=== PATIENT | male | born 1965 | race Caucasian/White ===

== ENCOUNTER 2017-03-12 14:23 | Emergency (ER) | payer OTHER, BC ==
--- NOTE | 2017-03-12 14:55 | RAD ---
RIGHT SMALL DIGIT RADIOGRAPHS 3 VIEWS: Date: 03/12/17 PROVIDED CLINICAL HISTORY: Right small digit pain status post injury. FINDINGS: There is a markedly comminuted, displaced fracture of the small digit terminal tuft. Associated soft tissue irregularity suggests laceration. Tiny punctate focus of increased density is present in the s oft tissues of the ulnar aspect of the distal small digit which may reflect a tiny foreign body. No a dditional fracture is evident. Alignment appears otherwise anatomic. Joint spaces appear preserved. IMPRESSION: Markedly comminuted terminal tuft fracture involving the small digit with findings suggesting associa paul laceration and possible tiny foreign body. POS: [place]
[2017-03-12] MEDS ORDERED: Bupivacaine 0.5% 10 ML VIAL ONE (16:22)
[2017-03-12] MEDS ORDERED: Lidocaine 1% PF 5 ML VIAL ONE (16:22)
[2017-03-12] MEDS ORDERED: Bacitracin Zinc 1 Packet ONE (17:33)
== END 2017-03-12 17:36 | disposition home or self-care (01) ==
LOC: ERS 14:23
DX: S67.196A Crushing injury of right little finger, initial encounter (principal); S62.636A Displaced fracture of distal phalanx of right little finger, initial encounter for closed fracture; F17.210 Nicotine dependence, cigarettes, uncomplicated; W31.89XA Contact with other specified machinery, initial encounter; Y99.0 Civilian activity done for income or pay
CPT/HCPCS: 11760; J2001; J3490

== ENCOUNTER 2017-03-26 15:57 | Outpatient (CLI) | payer OTHER ==
[2017-03-26 16:22] LABS: #Basophils 0.1 thou/uL (0.0-0.2); #Eosinphils 0.3 thou/uL (0.0-0.7); #Lymphocytes 2.5 thou/uL (1.20-3.40); #Monocytes 0.6 thou/uL (0.11-0.59); #Neutrophils 3.1 thou/uL (1.40-6.50); %Basophils 1.6 % (0.0-1.0); %Eosinophils 4.8 % (0.0-10.0); %Lymphocytes 38.2 % (21.0-51.0); %Monocytes 8.5 % (0.0-10.0); Hemoglobin 14.2 g/dL (14.0-18.0); Mean Corpuscular HGB CONC 33.9 g/dL (32.0-36.0); Mean Corpuscular Hemoglobin 32.4 pg (27.0-31.0); Mean Corpuscular Volume 95.5 fl (80.0-94.0); Mean Platelet Volume 9.6 fL (7.4-10.4); Platelet Count 171 thou/uL (130-400); RBC Distribution Width 12.5 % (11.5-14.5); Red Blood Cell (RBC) Count 4.38 mill/uL (4.70-6.10); White Blood Cell (WBC) Count 6.6 thou/uL (4.8-10.8)
[2017-03-26 16:36] LABS: Anion Gap 10 mmol/L (10-20); BUN (Urea Nitrogen) 18 mg/dL (8.4-25.7); Calc. Creatinine Clearance 0 mL/min (70-130); Calcium 9.5 mg/dL (7.8-10.44); Carbon Dioxide 28 mmol/L (22-29); Chloride 107 mmol/L (98-107); Estimated GFR-MDRD 82; Glucose 94 mg/dL (70-105); Potassium 4.3 mmol/L (3.5-5.1); Sodium 141 mmol/L (136-145)
--- NOTE | 2017-05-30 13:59 | EKG ---
Test Reason : Blood Pressure : / mmHG Vent. Rate : 081 BPM Atrial Rate : 081 BPM P-R Int : 164 ms QRS Dur : 086 ms QT Int : 362 ms P-R-T Axes : 080 073 059 degrees QTc Int : 420 ms Normal sinus rhythm Normal ECG No previous ECGs available Confirmed by MEENU BAUTISTA MD ([id number]) on 05/30/2017 1:59:31 PM Referred By: LINDA Confirmed By:MEENU BAUTISTA MD
== END 2017-03-26 15:58 | disposition home or self-care (01) ==
LOC: LABBT 15:57
PROVIDERS: ATTEND Orthopaedic Surgery Hand Surgery
DX: Z01.818 Encounter for other preprocedural examination (principal); S62.636A Displaced fracture of distal phalanx of right little finger, initial encounter for closed fracture
CPT/HCPCS: 80048; 85025; 85730; 93005; 93010

== ENCOUNTER 2017-03-27 08:22 | Day surgery (SDC) | payer OTHER ==
[2017-03-26 16:10] VITALS: BMI 29.5
[2017-03-27] MEDS ORDERED: Clindamycin/D5W 600 mg/50 ml Premix Bag ONE (09:17)
[2017-03-27] MEDS ORDERED: Sodium Chloride 0.9% 10 ML ONE (10:04)
[2017-03-27] MEDS ORDERED: Bacitracin Zinc Ointment 30 gm TUBE ONE (10:04)
[2017-03-27] MEDS ORDERED: Bupivacaine 0.5% 10 ML VIAL ONE (10:04)
[2017-03-27] MEDS ORDERED: Fentanyl 100 MCG/2 ML VIAL ONE (10:05)
[2017-03-27] MEDS ORDERED: Midazolam HCl 2 mg/2 ml Vial ONE ×2 (10:05→10:07)
[2017-03-27] MEDS ORDERED: Ketorolac Tromethamine 30 MG/ML VIAL ONE (11:36)
--- NOTE | 2017-03-27 14:36 | RAD ---
LATERAL INTRAOPERATIVE FLUOROSCOPIC IMAGE OF THE RIGHT SMALL FINGER: Date: 03/17/17 HISTORY: Right fifth digit debridement. FINDINGS/IMPRESSION: There is subcutaneous soft tissue swelling involving the distal aspect of the right small finger. The comminuted fracture involving the distal portion and tuft of the distal phalanx right small finger i s present. There is soft tissue irregularity related to laceration. Correlation with intraoperative f indings is recommended. POS: BUFFY
[2017-03-27] MEDS ORDERED: Lidocaine 1% PF 5 ML VIAL ONE (16:43)
[2017-03-27] MEDS ORDERED: Propofol 200 MG/20 ML VIAL ONE (16:43)
--- NOTE | 2017-03-27 17:49 | OP ---
DATE OF PROCEDURE: 03/27/2017 PREOPERATIVE DIAGNOSIS: Right small finger necrotic wound with previous open fracture and nail bed i njury. POSTOPERATIVE DIAGNOSES: 1. Necrosis, but not purulent or infected distal finger, 3 mm length, 5 mm wide area. 2. Nail bed laceration with some exposed bone. PROCEDURES PERFORMED: 1. Debridement of bone. 2. Treatment of open fracture with open treatment, distal phalanx open fracture. 3. Nail bed repair. 4. A 3.0 cm wound closure after debridement. SPECIMEN REMOVED: The necrotic piece was sent to lab, which was 3 mm long and 5 mm wide. INDICATION: The patient with the injury listed above, now almost 10 days old, had necrotic area, whi ch would not go to heal by itself, so felt operative intervention or treatment to include bone shorte emily and treatment of the open fracture was indicated. DESCRIPTION OF PROCEDURE: After successful anesthesia as listed above, the limb was prepped and drap ed. The patient had 2 mL augmentation of his anesthesia with Marcaine at the metacarpophalangeal cruzito nt block. Blunt no epinephrine. Then, we removed all the sutures under anesthesia and at that point , resected the necrotic areas leaving a 2 mm rim of bleeding tissue that was healthy and pink. Witho ut tourniquet, we could evaluate to bleed and it was healthy pink and bleeding. We then noticed that he had a small amount of bone protruding in the wound, so we removed, in order to treat his open fra cture, the fragments to make it as curvilinear as possible in line with the sagittal plane and this w as an open treatment of this open fracture. We then irrigated the fracture, the wound and the nail b ed laceration with a total of 2 liters normal saline with antibiotics inside using bulb syringe press ure. We now saw there were 2 longitudinal lacerations in the nail bed, which we debrided and closed with 5 -0 interrupted simple chromic. We then used 4-0 nylon and 5-0 nylon alternated to repair the wedge s haped laceration area, now remained with excellent bleeding. There was actually coaptation, and we d id not need a skin graft. The patient then had a bulky dressing applied with Kerlix on top of 4x4s on top of bacitracin and Ada ptic. Bulky dressing left with the patient and the patient had no evidence of anesthetic or operativ e complications.
== END 2017-03-27 12:39 | disposition home or self-care (01) ==
LOC: SDC 08:22
PROVIDERS: ATTEND Orthopaedic Surgery Hand Surgery
PROC: 0PBT0ZZ Excision of Right Finger Phalanx, Open Approach (ICD-10-PCS; principal; 2017-03-27)
PROC: 0HQQXZZ Repair Finger Nail, External Approach (ICD-10-PCS; principal; 2017-03-27)
DX: S62.636B Displaced fracture of distal phalanx of right little finger, initial encounter for open fracture (principal); I96 Gangrene, not elsewhere classified; F17.210 Nicotine dependence, cigarettes, uncomplicated; Z83.3 Family history of diabetes mellitus; Z98.890 Other specified postprocedural states
CPT/HCPCS: 76001; 96374; A4216; J1885; J2001; J2250; J2704; J3010; J3490

== ENCOUNTER 2019-07-26 06:44 | Outpatient (CLI) | payer BC, OTHER ==
[2019-07-26 11:27] LABS: INR-International Normal Ratio 0.9; PTT 35.8 sec (22.9-36.1); Prothrombin Time 12.6 sec (12.0-14.7)
[2019-07-26 11:28] LABS: Hemoglobin 15.4 g/dL (14.0-18.0); Mean Corpuscular HGB CONC 32.1 g/dL (32.0-36.0); Mean Corpuscular Hemoglobin 31.1 pg (27.0-31.0); Mean Corpuscular Volume 96.7 fL (78.0-98.0); Mean Platelet Volume 10.6 fL (7.4-10.4); Platelet Count 167 thou/uL (130-400); RBC Distribution Width 12.2 % (11.5-14.5); Red Blood Cell (RBC) Count 4.95 mill/uL (4.70-6.10); White Blood Cell (WBC) Count 5.8 thou/uL (4.8-10.8)
[2019-07-26 12:05] LABS: Bacteria/HPF None Seen HPF (None Seen); Bilirubin Negative (Negative); Blood, Urine 2+ (Negative); Clarity Clear (Clear); Glucose, Urine (Dipstick) Normal (Negative); Leukocyte Negative Leu/uL (Negative); Nitrite Negative (Negative); Protein, Urine (Dipstick) 10 mg/dL (Neg-Trace); RBC/HPF 0-3 HPF (0-3); Squamous Epithelial None Seen HPF (0-3); Urobilinogen Normal mg/dL (Less than 2); WBC/HPF 0-3 HPF (0-3)
[2019-07-26 13:18] LABS: Anion Gap 15 mmol/L (10-20); BUN (Urea Nitrogen) 13 mg/dL (8.4-25.7); Calc. Creatinine Clearance 0 mL/min (70-130); Calcium 9.3 mg/dL (7.8-10.44); Carbon Dioxide 25 mmol/L (22-29); Chloride 104 mmol/L (98-107); Estimated GFR-MDRD 85; Glucose 97 mg/dL (70-105); Potassium 4.5 mmol/L (3.5-5.1); Sodium 139 mmol/L (136-145)
[2019-07-27 12:45] LABS: SARS-CoV-2 MS2 Positive; SARS-CoV-2 N Gene Negative; SARS-CoV-2 S Gene Negative; SARS-CoV-2 orf1ab Negative
== END 2019-07-26 06:45 | disposition home or self-care (01) ==
LOC: LABBT 06:44
PROVIDERS: ATTEND Urology
DX: Z01.818 Encounter for other preprocedural examination (principal); Z11.59 Encounter for screening for other viral diseases; C67.2 Malignant neoplasm of lateral wall of bladder; J44.9 Chronic obstructive pulmonary disease, unspecified; Z72.0 Tobacco use
CPT/HCPCS: 80048; 81001; 85027; 85610; 85730; 87086; 87635; 93005; 93010; U0003

== ENCOUNTER 2019-07-28 07:44 | Day surgery (SDC) | payer BC ==
[2019-07-25 10:49] VITALS: BMI 28.2
[2019-07-28] MEDS ORDERED: Levofloxacin 500 mg/D5W 100 ml Premix Bag ONE (08:30)
[2019-07-28] MEDS ORDERED: Fentanyl 100 MCG/2 ML VIAL ONE (10:42)
[2019-07-28] MEDS ORDERED: MITOMYCIN I-VESIC SCH (10:45)
[2019-07-28] MEDS ORDERED: Midazolam HCl 2 mg/2 ml Vial ONE (10:45)
[2019-07-28] MEDS ORDERED: STERILE WATER I-VESIC SCH (10:45)
[2019-07-28] MEDS ORDERED: Rocuronium Bromide 50 MG/5 ML VIAL ONE (11:18)
[2019-07-28] MEDS ORDERED: B & O ONE (11:48)
[2019-07-28] MEDS ORDERED: SUGAMMADEX SODIUM 200 MG/2 ML VIAL ONE (11:55)
[2019-07-28] MEDS ORDERED: Oxybutynin 5 MG TAB ONE (13:05)
[2019-07-28] MEDS ORDERED: Phenazopyridine HCl 97.5 MG TABLET ONE (13:05)
--- NOTE | 2019-07-28 13:14 | RAD ---
RETROGRADE PYELOGRAM: Date; 07/28/2019 HISTORY: Bladder tumor. FINDINGS: Two spot films are presented for interpretation. These demonstrate a partially filled bladder. There is no evidence for reflux into the right or left ureter. No contrast media in the right or left urete r from injection. IMPRESSION: Two AP views of the lower abdomen and pelvis demonstrate contrast media within the bladder without ev idence for reflux, ureteral injection, or overt bladder mass from this study. POS: JOAQUÍN
[2019-07-28] MEDS ORDERED: hydrALAZINE 20 MG/ML VIAL ONE (14:44)
[2019-07-28] MEDS ORDERED: Lidocaine 1% PF 5 ML VIAL ONE (15:47)
[2019-07-28] MEDS ORDERED: Glycopyrrolate 0.2 MG/ML 5 ML SYRINGE ONE (15:47)
[2019-07-28] MEDS ORDERED: Ondansetron PF 4 MG/2 ML Vial ONE (15:47)
[2019-07-28] MEDS ORDERED: Rocuronium Bromide 10 MG/ML (10ML VIAL) ONE (15:47)
[2019-07-28] MEDS ORDERED: Dexamethasone 20 MG/5 ML VIAL ONE (15:47)
[2019-07-28] MEDS ORDERED: EPHEDRINE 25 MG/5 ML SYRINGE ONE (15:47)
[2019-07-28] MEDS ORDERED: PROPOFOL 200 MG/20 ML VIAL ONE (15:47)
--- NOTE | 2019-07-28 16:56 | OP ---
DATE OF PROCEDURE: 07/28/2019 SERVICE: Urology. PREOPERATIVE DIAGNOSIS: Bladder cancer. POSTOPERATIVE DIAGNOSIS: Bladder cancer. PROCEDURE PERFORMED: Transurethral resection of bladder tumor of approximately 2 to 5 cm with postoperative instillation of mitomycin-C and intraoperative cystogram. INDICATIONS FOR PROCEDURE: Mr. Westbrook is a 53-year-old white male, who presented to de with gross hematuria. Cystoscopy demonstrated a large bladder tumor on the patient's right lateral bladder wall somewhat posteriorly. We discussed TURBT with mitomycin-C instillation with risks and benefits, and he has agreed to proceed forward. DESCRIPTION OF PROCEDURE: After identification of armband and verification of consent, the patient was brought back to the operating room, where he underwent general anesthesia with endotracheal intubation and full paralysis. He was then placed in dorsal lithotomy position and prepped and draped in usual sterile fashion. After appropriate time-out, a lubricated 26-[place] resectoscope sheath with continuous-flow was introduced per urethra into the bladder. The visual obturator was switched out for the bipolar bladder resectoscope loop. Full cystoscopy was performed, which did not demonstrate any tumors except the previously described tumor, which was approximately 4 cm in size. Using the resectoscope loop, the stone was dislodged off the surface of the tumor and then resection carried down to the base of the tumor. The base was resected into the detrusor muscle. In one area, it did look a little deep, but did not look like it was perforated all the way through. The remainder was resected into the muscle, but not through it. Upon completion, there was no visible tumor left. All areas were meticulously cauterized for hemostasis. There was no active bleeding toward the end of the case. All the tumor was evacuated through the cystoscope loop. The stone was crushed using the resectoscope loop and then evacuated. There was no identifiable tumor at the end of the case within the bladder. Before instilling mitomycin-C, I did decide to do a cystogram to ensure that there was no bladder extravasation as this would be a contraindication proceeding with mitomycin-C. Therefore, an 18-[place] Jonas catheter was then placed into the bladder after this resectoscope was removed and 10 mL of sterile water placed into the balloon. Approximately 240 mL of sterile water mixed with contrast was instilled into the bladder. Plain stuffer film was performed using the fluoroscopy, which demonstrated cellules and an irregular bladder wall, but no evidence of extravasation. The resection bed could be visualized and again no leak was identified. Satisfied that there was no leak and it is extremely unlikely the patient will carry more than 250 mL in his bladder during his mitomycin-C instillation. I did feel it was safe to proceed with mitomycin-C instillation. The contrast and water were drained out completely out of the bladder until everything was evacuated. At which point, 40 mg of mitomycin-C in 20 mL of water was instilled into the patient's bladder. The catheter was plugged. B and O suppositories placed into his rectum. All the specimen was sent off for routine pathologic evaluation. The patient was then taken out of positioning, awakened, and taken to PACU for recovery in stable condition. COMPLICATIONS: None. ESTIMATED BLOOD LOSS: Minimal. RETAINED TUBES AND DRAINS: 18-[place] Jonas. SPECIMENS: Bladder tumor. DISPOSITION: The patient will stay in recovery for 1 hour for mitomycin-C instillation. After that, he can undergo a void trial and be discharged home, and his postop care will be handled on an outpatient basis thereafter. Job ID: [id number]
== END 2019-07-28 16:27 | disposition home or self-care (01) ==
LOC: SDC 07:44
PROVIDERS: ATTEND Urology
PROC: 0TBB8ZZ Excision of Bladder, Via Natural or Artificial Opening Endoscopic (ICD-10-PCS; principal; 2019-07-28)
DX: C67.2 Malignant neoplasm of lateral wall of bladder (principal); F17.210 Nicotine dependence, cigarettes, uncomplicated; J44.9 Chronic obstructive pulmonary disease, unspecified; Z79.899 Other long term (current) drug therapy
CPT/HCPCS: 74420; 88307; J0360; J1100; J1956; J2001; J2250; J2405; J2704; J3010; J9280

== ENCOUNTER 2019-08-09 08:42 | Day surgery (SDC) | payer BC ==
[2019-08-09] MEDS ORDERED: Bupivacaine 0.25% HCL 30 ML VIAL ONE (10:46)
[2019-08-09] MEDS ORDERED: Fentanyl 100 MCG/2 ML VIAL ONE (10:46)
[2019-08-09] MEDS ORDERED: Midazolam HCl 2 mg/2 ml Vial ONE (10:46)
[2019-08-09] MEDS ORDERED: Lidocaine 1% w/Epinephrine 1:100K 20 ML VIAL ONE (10:46)
--- NOTE | 2019-08-09 12:34 | OP ---
DATE OF PROCEDURE: 08/09/2019 PREOPERATIVE DIAGNOSIS: Acute cholecystitis. POSTOPERATIVE DIAGNOSIS: Acute cholecystitis. PROCEDURE PERFORMED: Laparoscopic cholecystectomy. ANESTHESIA: General. ESTIMATED BLOOD LOSS: Minimal. COMPLICATIONS: None. SPECIMEN: Gallbladder. FINDINGS: Cholecystitis. DESCRIPTION OF PROCEDURE: The patient was taken to the operating room and laid supine on the operating room table. After general anesthetic was obtained, the abdomen was prepped and draped in a sterile fashion. A curved incision was made below the umbilicus. Cautery was used to dissect down to the umbilical fascia. Umbilical fascia was incised and held up using a Mike. The abdominal cavity was entered using a Tessa clamp. Holding stitch of Vicryl was placed on each side of the fascia. Jiménez trocar was placed. High-flow pneumoperitoneum was obtained. An upper midline 5 mm port and 2 right upper quadrant 5 mm ports were placed under direct camera visualization. The gallbladder was retracted from the gallbladder fossa. The peritoneum of the gallbladder was opened anteriorly and posteriorly. The critical view triangle was seen showing only the cystic duct and cystic artery branching from medial to lateral. There were no other branching structures. Two clips were placed proximally on the cystic duct and one laterally. It was cut using laparoscopic scissors. The cystic artery was taken in the same way. Electrocautery was then used to dissect the gallbladder out of the gallbladder fossa. The gallbladder was placed in an Endo catch bag and brought out through the Jiménez. There was no bleeding or bile in the liver bed. The cystic duct stump and cystic artery stump were intact, without evidence of extravasation or bleeding. All port sites were infiltrated using local anesthesia. All ports were removed under camera visualization. Pneumoperitoneum was let down. The Vicryl was used to close the fascial defect below the umbilicus. All incisions were irrigated and closed using 4-0 Monocryl and Dermabond. The patient was en route to Recovery in stable condition. All instrument counts, needle counts and lap counts were correct. Job ID: [id number]
--- NOTE | 2019-08-09 13:36 | HP ---
CHIEF COMPLAINT: Right upper quadrant pain. HISTORY OF PRESENT ILLNESS: This is a 53-year-old male with a history of pain in his upper abdomen. This is the third time in the last few weeks, described as sharp 09/18. Does not radiate. Associated with nausea. No vomiting. No history of jaundice or pancreatitis. MEDICAL HISTORY: He denies. SURGICAL HISTORY: Hernia. MEDICATIONS: Taken daily, none. ALLERGIES: NO KNOWN DRUG ALLERGIES. SOCIAL HISTORY: He smokes. No alcohol or other drugs. REVIEW OF SYSTEMS: 10-system review of systems is otherwise negative as described above. PHYSICAL EXAMINATION: HEENT: Sclerae are anicteric. Oropharynx clear. NECK: No lymphadenopathy. CHEST: Clear. HEART: Regular rate. ABDOMEN: Soft, tender right upper quadrant with localized guarding. No rebound. No abdominal hernias. EXTREMITIES: No ischemia or edema to extremities. LABORATORY DATA: LFTs normal. Ultrasound shows gallstones with normal common bile duct. ASSESSMENT: Acute cholecystitis. PLAN: Laparoscopic cholecystectomy. Risks, benefits, and alternatives discussed. He gives consent. We will do this today. Job ID: [id number]
[2019-08-09] MEDS ORDERED: Dexamethasone 20 MG/5 ML VIAL ONE (15:19)
[2019-08-09] MEDS ORDERED: PROPOFOL 200 MG/20 ML VIAL ONE (15:19)
[2019-08-09] MEDS ORDERED: Rocuronium Bromide 10 MG/ML (10ML VIAL) ONE (15:19)
[2019-08-09] MEDS ORDERED: Ondansetron PF 4 MG/2 ML Vial ONE (15:19)
[2019-08-09] MEDS ORDERED: Esmolol 100 MG/10 ML VIAL ONE (15:19)
[2019-08-09] MEDS ORDERED: Ketorolac Tromethamine 30 MG/ML VIAL ONE (15:19)
[2019-08-09] MEDS ORDERED: Glycopyrrolate 0.2 MG/ML 5 ML SYRINGE ONE (15:19)
[2019-08-09] MEDS ORDERED: Lidocaine 1% PF 5 ML VIAL ONE (15:19)
== END 2019-08-09 13:30 | disposition home or self-care (01) ==
LOC: SDC 08:42
PROVIDERS: ATTEND Surgery
PROC: 0FT44ZZ Resection of Gallbladder, Percutaneous Endoscopic Approach (ICD-10-PCS; principal; 2019-08-09)
DX: K80.13 Calculus of gallbladder with acute and chronic cholecystitis with obstruction (principal); F17.200 Nicotine dependence, unspecified, uncomplicated
CPT/HCPCS: 88304; J0694; J1100; J1885; J2001; J2250; J2405; J2704; J3010; S0020

== ENCOUNTER 2019-09-12 07:12 | Outpatient (CLI) | payer BC, OTHER ==
--- NOTE | 2019-09-12 09:22 | RAD ---
EXAM: Chest 2 views: HISTORY: Preoperative radiograph COMPARISON: 06/14/2018 FINDINGS: There is a normal-sized cardiomediastinal silhouette. There is no evidence of consolidation, mass, or pleural effusion. The bones are unremarkable. IMPRESSION: No evidence of acute cardiopulmonary disease
[2019-09-12 10:58] LABS: Hemoglobin 14.3 g/dL (14.0-18.0); Mean Corpuscular HGB CONC 31.9 g/dL (32.0-36.0); Mean Corpuscular Hemoglobin 30.2 pg (27.0-31.0); Mean Corpuscular Volume 94.6 fL (78.0-98.0); Platelet Count 146 thou/uL (130-400); RBC Distribution Width 11.8 % (11.5-14.5); Red Blood Cell (RBC) Count 4.73 mill/uL (4.70-6.10); White Blood Cell (WBC) Count 5.8 thou/uL (4.8-10.8)
[2019-09-12 11:00] LABS: INR-International Normal Ratio 0.9; PTT 30.1 sec (22.9-36.1); Prothrombin Time 12.2 sec (12.0-14.7)
[2019-09-12 11:12] LABS: Bacteria/HPF None Seen HPF (None Seen); Bilirubin Negative (Negative); Blood, Urine Negative (Negative); Clarity Clear (Clear); Glucose, Urine (Dipstick) Normal (Negative); Ketone, Urine Negative (Negative); Leukocyte Negative Leu/uL (Negative); Nitrite Negative (Negative); Protein, Urine (Dipstick) Negative (Neg-Trace); RBC/HPF 0-3 HPF (0-3); Specific Gravity, Urine 1.005 (1.002-1.036); Squamous Epithelial None Seen HPF (0-3); Urobilinogen Normal mg/dL (Less than 2)
[2019-09-12 12:28] LABS: Anion Gap 13 mmol/L (10-20); BUN (Urea Nitrogen) 15 mg/dL (8.4-25.7); Calc. Creatinine Clearance 0 mL/min (70-130); Calcium 9.3 mg/dL (7.8-10.44); Carbon Dioxide 25 mmol/L (22-29); Chloride 105 mmol/L (98-107); Estimated GFR-MDRD 82; Glucose 98 mg/dL (70-105); Potassium 4.3 mmol/L (3.5-5.1); Sodium 139 mmol/L (136-145)
[2019-09-13 14:13] LABS: SARS-CoV-2 MS2 Positive; SARS-CoV-2 N Gene Negative; SARS-CoV-2 S Gene Negative; SARS-CoV-2 by NAA Not Detected (NotDetected); SARS-CoV-2 orf1ab Negative
--- NOTE | 2019-09-13 15:35 | EKG ---
Test Reason : Blood Pressure : / mmHG Vent. Rate : 053 BPM Atrial Rate : 053 BPM P-R Int : 182 ms QRS Dur : 086 ms QT Int : 414 ms P-R-T Axes : 071 064 062 degrees QTc Int : 388 ms Sinus bradycardia Otherwise normal ECG Confirmed by LON BUSH ([id number]) on 09/13/2019 3:35:12 PM Referred By: DMITRI Confirmed By:LON BUSH
== END 2019-09-12 07:13 | disposition home or self-care (01) ==
LOC: LABBT 07:12 → SCSRAD 07:13
PROVIDERS: ATTEND Urology
DX: Z01.818 Encounter for other preprocedural examination (principal); Z11.59 Encounter for screening for other viral diseases; C67.2 Malignant neoplasm of lateral wall of bladder; J44.9 Chronic obstructive pulmonary disease, unspecified; Z72.0 Tobacco use
CPT/HCPCS: 71046; 80048; 81001; 85027; 85610; 85730; 87086; 87635; 93005; 93010; U0003

== ENCOUNTER 2023-11-25 14:12 | Outpatient (CLI) | payer BC | END 2023-11-25 14:13 | disposition home or self-care (01) | LOC: SCSRAD 14:12 | PROVIDERS: ATTEND Family Medicine | DX: M25.542 Pain in joints of left hand (principal); M19.042 Primary osteoarthritis, left hand; M25.742 Osteophyte, left hand ==